=== PATIENT | female | born 1980 | race African-American/Black ===

== ENCOUNTER → 2017-06-24 | Outpatient (CLI) | payer BC ==
[~2017-06-24] MED LIST: AVIATAB PO; BENI40TA30 PO; FOLI400T PO; IBUP-232 PO; MECL-62 PO; METR1TAB76 PO; OXYC1TAB63 PO; VALS1TAB63 PO; VITD400 PO
== END ==
LOC: CPRE 10:04
PROVIDERS: ATTEND Obstetrics & Gynecology
DX: Z01.812 Encounter for preprocedural laboratory examination (principal); D25.9 Leiomyoma of uterus, unspecified

== ENCOUNTER 2017-06-30 06:04 | Inpatient (IN) | payer BC ==
[~2017-06-30] VITALS: Ht 154.9 cm; Wt 94.3 kg
[~2017-06-30 06:04] MED LIST changes: -BENI40TA30 PO; -IBUP-232 PO; -METR1TAB76 PO; -OXYC1TAB63 PO
[2017-06-30] MEDS ORDERED: POVIDONE IODINE 5% (ANTISEPSIS KIT) 4 APPLICATIONS EACH NARE PRN (06:30)
[2017-06-30] MEDS ORDERED: METOPROLOL TARTRATE 25 MG TAB PO PRN (06:30)
[2017-06-30] MEDS ORDERED: CHLORHEXIDINE GLUCONATE 2 % 1 PACK (2 CLOTHS) TOPICAL PRN (06:30)
[2017-06-30] MEDS ORDERED: LACTATED RINGER'S 1000 ML IV PRN (06:30)
[2017-06-30] MEDS ORDERED: ceFAZolin 2 GM PREMIX 50 ML IV SCH (06:30)
[2017-06-30] MEDS ORDERED: SODIUM CHLORID 0.9% 500 ML IV PRN (06:30)
[2017-06-30] MEDS ORDERED: MICROFIBRILLAR COLLAGEN HEMOSTAT 1 GM PKT ONE (07:09)
[2017-06-30] MEDS ORDERED: VASOPRESSIN 20 UNITS/ML VIAL (IVTITR) ONE (08:55)
[2017-06-30] MEDS ORDERED: SODIUM CHLORIDE 0.9% INJ 50 ML ONE (09:00)
[2017-06-30] MEDS ORDERED: HYDROmorphone HCL PCA 6 MG/30 ML IV SCH (10:15)
[2017-06-30] MEDS ORDERED: DO NOT ADM ANY ANTICOAGULANT DRUGS PRN (10:25)
[2017-06-30] MEDS ORDERED: *HYDROmorphone PF 1 MG VIAL PERIprocedural Use ONLY ONE ×2 (10:29→10:44)
[2017-06-30] MEDS ORDERED: IBUPROFEN 600 MG TAB PO PRN (10:30)
[2017-06-30] MEDS ORDERED: SODIUM CHLORIDE 0.9% FLUSH 10 ML FLUSH IV FLUSH PRN (10:30)
[2017-06-30] MEDS ORDERED: LACTATED RINGER'S 1000 ML INJ 1,000 ML IV SCH (10:30)
[2017-06-30] MEDS ORDERED: ONDANSETRON HCL 4 MG/2 ML VIAL IV PUSH PRN (10:30)
[2017-06-30] MEDS ORDERED: diphenhydrAMINE HCL 50 MG/ML VIAL IV PUSH PRN (10:30)
[2017-06-30] MEDS ORDERED: ACETAMINOPHEN 325 MG TAB PO PRN (10:30)
[2017-06-30] MEDS ORDERED: NALOXONE HCL 0.4 MG/ML AMP IV PUSH PRN (10:30)
[2017-06-30] MEDS ORDERED: DOCUSATE SODIUM 100 MG CAP PO PRN (11:00)
[2017-06-30 12:20] VITALS: BP 125/75; PULSE 89; RESP 18; TEMP 98.2; O2SAT 99
--- NOTE | 2017-06-30 13:13 | MP ---
cc: SEBASTIAN BENNETT DATE OF SURGERY 06/30/2017 PREOPERATIVE DIAGNOSIS Enlarged fibroid uterus, menorrhagia, anemia. POSTOPERATIVE DIAGNOSIS Enlarged fibroid uterus, menorrhagia, anemia. PROCEDURE Examination under anesthesia, open laparotomy, multiple myomectomy. SURGEON Dr. Bennett EMG TECHNICIAN Isabel Willams ANESTHESIA General endotracheal anesthesia FLUIDS 1500 cc crystalloid ESTIMATED BLOOD LOSS 200 cc URINE OUTPUT 400 cc clear yellow at the end of the procedure. FINDINGS An enlarged fibroid uterus was noted. Five fibroids were removed, three intramural and two pedunculated. The tubes and ovaries appeared normal bilaterally. Endometrium entered, not a candidate for vaginal delivery. PROCEDURE The patient was taken to the operating room where general anesthesia was found to be adequate. She was then prepped and draped in the normal sterile fashion in the dorsal supine position. A Ace catheter was inserted into the urinary bladder using sterile technique. A Pfannenstiel skin incision was made with a scalpel and carried down to the underlying layer of fascia. The fascia was nicked in the midline and this incision was extended laterally with curved Valladares scissors. Attention was turned to the inferior aspect of this incision which was grasped with Mark clamps, elevated the rectus muscles dissected off sharply. Attention was turned to the superior aspect of the incision which was grasped with Mark clamps, elevated and the rectus muscles dissected off sharply. The rectus muscles were in the midline. The peritoneum was identified, grasped between two Leidy clamps, elevated and entered sharply with Metzenbaum scissors. This incision was extended superiorly and inferiorly with good visualization of the bladder. The bladder blade was inserted and a Vazquez retractor was inserted. The bowels were packed away with a moist laparotomy sponge. The uterus was brought to the incision. A 6 cm fundal fibroid was noted and then two 2-3 cm intramural fibroids were noted to the right and the beneath the large fundal fibroid and two 3-4 cm pedunculated fibroids were noted one anterior and one posterior. Pitressin was injected over the surface of the large fundal fibroid and an incision was made over the uterine fundus and the 6 cm fibroid was excised using sharp dissection with curved Valladares scissors. The vascular pedicle was clamped with a Leidy clamp. The fibroid was amputated. A suture was placed around the vascular pedicle. The 3 cm fibroid just to the right of this first fibroid was grasped with a towel clamp and shelled out using Metzenbaum scissors. The vascular pedicle was clamped with a Leidy clamp and the fibroid was amputated and a suture was placed through the pedicle. Two additional intramural fibroid was dissected anteriorly through the same incision using the a towel clamp for retraction. The fibroid were shelled out. The vascular pedicles were clamped with a Leidy clamp. The fibroids were amputated and a suture was placed for hemostasis around the vascular pedicles. The muscular layers were closed with multiple sutures of interrupted 0 Vicryl. The muscular layer just under the serosa was closed in a running fashion with 0 Vicryl and the serosa was closed with a baseball stitch of 2-0 Vicryl. The anterior pedunculated fibroid was injected with Pitressin. A small incision was made over it and the fibroid was shelled out using Metzenbaum scissors. The serosa was closed with two [id number] sutures. The posterior pedunculated fibroid stalk was clamped with a Leidy clamps and the fibroid was amputated. The stalk was closed with a suture with two [id number] sutures. Hemostasis was assured. The pelvis was irrigated and suctioned. Surgicel powder was then placed over the incisions for hemostasis and then intercede was placed over the uterus, the fundal incision and the anterior and posterior incisions as an adhesion barrier. The instruments were removed from the abdomen. The fascia was closed in a running fashion with 0 Vicryl. The subcutaneous space was closed with three interrupted sutures of 3-0 chromic. The skin was closed in a subcuticular fashion with a 4-0 Monocryl. A dressing was placed over the incision. The sponge, lap, needle and instrument counts were correct. Pathology was five fibroids. The patient was awakened from anesthesia and transferred to recovery room in stable condition. MD ZHENG Naqvi/RONDA /10:25 AM /12:58 PM JOSE
[2017-06-30 16:52] VITALS: BP 135/81; PULSE 98; RESP 20; TEMP 98.2
[2017-06-30] MEDS: PCA - TOTAL MG DILAUDID DELIVERED PER SHIFT OTHER SCH (18:10)
[2017-06-30 19:00] VITALS: BP 121/73; PULSE 82; RESP 18; TEMP 98.7
[2017-06-30] MEDS ORDERED: SODIUM CHLORIDE 0.9% FLUSH 10 ML FLUSH IV FLUSH SCH (21:00)
[2017-06-30] MEDS: SIMETHICONE 80 MG CHEWABLE TAB PO PRN (22:53)
[2017-07-01 00:26] VITALS: BP 140/89; PULSE 82; RESP 14; TEMP 99.6; O2SAT 98
[2017-07-01 04:25] VITALS: BP 125/77; PULSE 82; RESP 14; TEMP 98.3; O2SAT 98
[2017-07-01 05:58] LABS: AUTOMATED NEUTROPHIL # 8.6 TH/MM3 (1.8-7.7); BASOPHIL % 0.2 % (0.0-2.0); HEMATOCRIT 33.7 % (35.0-46.0); LYMPH % 18.3 % (9.0-44.0); LYMPHOCYTE # 2.2 TH/MM3 (1.0-4.8); MEAN CELL VOLUME 78.2 FL (80.0-100.0); MEAN CORPUSCULAR HEMOGLOBIN 25.1 PG (27.0-34.0); MEAN CORPUSCULAR HGB CONC 32.1 % (32.0-36.0); NEUT % 72.5 % (16.0-70.0); PLATELET COUNT 254 TH/MM3 (150-450); RED BLOOD COUNT 4.31 MIL/MM3 (4.00-5.30); RED CELL DISTRIBUTION WIDTH 22.2 % (11.6-17.2); WHITE BLOOD COUNT 11.9 TH/MM3 (4.0-11.0)
[2017-07-01 06:05] LABS: HEMO FLAGS AUTO DIFF
[2017-07-01] MEDS: PCA - TOTAL MG DILAUDID DELIVERED PER SHIFT OTHER SCH (06:31)
[2017-07-01] MEDS ORDERED: oxyCODONE/ACETAMINOPHEN 10 MG/325 MG TAB PO PRN (07:00)
--- NOTE | 2017-07-01 07:52 | HHI.PR ---
Subjective Remarks Doing well, pain is well controlled, eating well. Objective Vital Signs Vital Signs Date Time Temp Pulse Resp B/P (MAP) Pulse Ox O2 Delivery O2 Flow Rate FiO2 07/01/17 06:31 14 07/01/17 04:25 98.3 82 14 125/77 (93) 98 07/01/17 00:26 99.6 82 14 140/89 (106) 98 06/30/17 19:00 98.7 82 18 121/73 (89) 06/30/17 18:10 18 06/30/17 16:52 98.2 98 20 135/81 (99) 06/30/17 12:20 98.2 89 18 125/75 (92) 99 06/30/17 11:39 98.1 63 18 127/63 (84) 97 Nasal Cannula 2 06/30/17 11:30 60 18 116/64 (81) 98 Nasal Cannula 2 06/30/17 11:15 61 18 117/62 (80) 100 Nasal Cannula 2 06/30/17 11:00 61 18 119/61 (80) 100 Nasal Cannula 2 06/30/17 10:55 12 06/30/17 10:45 60 18 123/63 (83) 100 Nasal Cannula 2 06/30/17 10:27 99.3 66 18 123/58 (79) 99 Nasal Cannula 2 06/30/17 09:10 79 103/61 I/O 06/30/17 06/30/17 06/30/17 07/01/17 07/01/17 07/01/17 07:00 15:00 23:00 07:00 15:00 23:00 Intake Total 1500 ml Output Total 600 ml 450 ml 1400 ml Balance 900 ml -450 ml -1400 ml Other 1500 ml Output Urine Total 400 ml 450 ml 1400 ml Estimated Blood Loss 200 ml Result Diagram: 07/01/17 0459 Objective Remarks Chest is clear, regular rate and rhythm. Abdomen is soft and non-distended. Incision is clean and dry. Ext no CCE. A/P Assessment and Plan Post Op Day 1 s/p open multiple myomectomy Doing well Home today and return to office in two weeks. Ene Llanos MD Jul 01, 2017 07:52
[2017-07-01] MEDS ORDERED: METR1TAB76 PO (07:59)
[2017-07-01] MEDS ORDERED: IBUP-232 PO (07:59)
[2017-07-01] MEDS ORDERED: OXYC1TAB63 PO (07:59)
--- NOTE | 2017-07-01 08:01 | HHI.DCPOC ---
Discharge Care Plan Your Health Problems Are: Abdominal pain Report Symptoms to Your Doctor -Temperature above 100.5 degrees -Redness, of incision or excessive or foul smelling drainage -Unusual pain or calf pain -Increased vaginal bleeding -Painful or difficulty urinating -Feelings of extreme sadness or anxiety after 2 weeks Goals to Promote Your Health * To prevent worsening of your condition and complications * To maintain your health at the optimal level Directions to Meet Your Goals Take your medications as prescribed Follow your dietary instruction Follow activity as directed Ensure plenty of rest for recovery Drink fluids for hydration Keep your appointments as scheduled Take your immunizations and boosters as scheduled If your symptoms worsen call your PCP, if no PCP go to Urgent Care Center or Emergency Room Smoking is Dangerous to Your Health. Avoid second hand smoke Call the 24-hour crisis hotline for domestic abuse at Ene Llanos MD Jul 01, 2017 08:01
[2017-07-01 08:09] LABS: OVALOCYTES 1+ (NORMAL); PLATELET ESTIMATE SMEAR NORMAL (NORMAL); PLATELET MORPHOLOGY NORMAL (NORMAL); SCAN/DIFF AUTO DIFF CONFIRMED
[2017-07-01 08:19] VITALS: BP 122/79; PULSE 83; RESP 16; TEMP 98.2; O2SAT 98
[2017-07-01] MEDS: SIMETHICONE 80 MG CHEWABLE TAB PO PRN (08:35)
[2017-07-01] MEDS ORDERED: VALSARTAN 40 MG TAB PO SCH (09:00)
== END 2017-07-01 11:41 | disposition home or self-care (01) | DRG 743 ==
LOC: HSDI 06:04 → H1EA 12:02
PROVIDERS: ADMIT Obstetrics & Gynecology; ATTEND Obstetrics & Gynecology
PROC: 0UB90ZZ Excision of Uterus, Open Approach (ICD-10-PCS; principal; 2017-06-30 08:00)
DX: D25.1 Intramural leiomyoma of uterus (principal); D64.9 Anemia, unspecified; N92.0 Excessive and frequent menstruation with regular cycle
CPT/HCPCS: 85025; 86850; 86900; 86901; 88305; 94150; J0690; J1170; J7120